=== PATIENT | male | born 1935 | race Caucasian/White ===

== ENCOUNTER 2023-09-23 11:52 | Outpatient (CLI) | payer MEDICARE, SELFPAY ==
[2023-09-23 22:08] LABS: Anion Gap 8 mmol/L (4-12); Blood Urea Nitrogen 31 mg/dL (9-20); Calcium 9.3 mg/dL (8.4-10.2); Carbon Dioxide 24 mmol/L (22-30); Chloride 105 mmol/L (98-107); Estimated Glomerular Filt Rate 41; Glucose 92 mg/dL (65-110); Potassium 5.3 mmol/L (3.4-5.0); Sodium 137 mmol/L (137-145)
[2023-09-23 22:36] LABS: Thyroid Stimulating Hormone 0.134 uIU/mL (0.465-4.680)
[2023-09-23 23:50] LABS: Free T4 Free Thyroxine 1.85 ng/mL (0.78-2.19)
== END 2023-09-23 11:53 | disposition home or self-care (01) ==
LOC: ANHWCLAB 11:56
PROVIDERS: PCP Family Medicine; Visit Provider Internal Medicine Endocrinology, Diabetes & Metabolism
DX: E05.90 Thyrotoxicosis, unspecified without thyrotoxic crisis or storm (principal); E04.9 Nontoxic goiter, unspecified; L03.90 Cellulitis, unspecified
CPT/HCPCS: 36415; 80048; 84439; 84443; 84481; 85025